=== PATIENT | male | born 1985 ===

== ENCOUNTER → 2017-12-25 20:51 | Outpatient (REF) | payer OTHER, SELFPAY ==
[2017-12-28 13:20] LABS: QuantiFERON TB NEGATIVE (Negative)
[2017-12-31 14:33] LABS: Rapid Plasma Reagin NON-REACTIVE
== END ==
LOC: LAB 20:51
PROVIDERS: Visit Provider Family Medicine Adult Medicine
DX: Z00.00 Encounter for general adult medical examination without abnormal findings (principal)
CPT/HCPCS: 86480; 86592; 87591